=== PATIENT | female | born 1980 | race Caucasian/White ===

== ENCOUNTER 2017-02-18 17:05 | Inpatient (IN) ==
[2017-02-18] MEDS ORDERED: ALBUTEROL/IPRATROPIUM 3 ML NEB RESP TX STA (18:04)
[2017-02-18] MEDS ORDERED: cefTRIAXone 1,000 MG in SODIUM CHLORIDE 0.9% 100 ML IV STA (18:04)
[2017-02-18] MEDS ORDERED: ONDANSETRON 4 MG/2 ML VIAL IV STA ×2 (18:04→20:32)
[2017-02-18] MEDS ORDERED: SODIUM CHLORIDE 0.9% 1,000 ML IV STA (18:04)
[2017-02-18] MEDS ORDERED: methylPREDNISolone SOD SUC 125 MG/2 ML VIAL IV STA (18:04)
--- NOTE | 2017-02-18 18:18 | Emergency Department Note ---
Carmelita Dykes Mantricia, am scribing for, and in the presence of, Brando Mota MD 18:01. Svetlana Dykes Charles R, MD, personally performed the services described in this documentation, ascribed by Maritza Mae in my presence, and it is both accurate and complete 8 . Arrival - Arrival Chief Complaint: Non-Specific ED Nursing Triage Note: pt was outside and fell. pt was sitting outside and fell out of a chair Mode of Arrival: Stretcher Limitations: No Limitations Source: Guardian Time Seen by Provider: 02/18/17 17:42 - History of Present Illness HPI Narrative: Pt is a 36 y/o white female arriving to ED by EMS with c/o a fall that onset today. Guardian at [facility] states that pt was sitting outside on some cement blocks and they noticed that she was slumped over. When they looked again, pt was on the ground and had fallen. Pt states that she is sick to her stomach. She has down syndrome but reports no other medical Hx. No other complaints were reported to ED. Onset (ago): hour(s) Consistency: constant Severity: mild Allergies/Adverse Reactions: Allergies Allergy/AdvReac Type Severity Reaction Status Date / Time Iodinated Contrast Media - Allergy Unknown/Unable Verified 02/18/17 17:17 Oral and to obtain Home Medications: Home Medications Medication Instructions Recorded Confirmed Type Albuterol Neb [Proventil Neb] 2.5 mg RESP TX Q4H PRN 02/18/17 02/18/17 History Citalopram Hydrobromide 20 mg PO 0800 02/18/17 02/18/17 History [Citalopram HBr] Divalproex Sodium [Divalproex 750 mg PO 0800 02/18/17 02/18/17 History Sodium ER] Furosemide Tab [Lasix Tab] 20 mg PO 0800 02/18/17 02/18/17 History Levothyroxine Tab [Synthroid Tab] 150 mcg PO DAILY@0700 02/18/17 02/18/17 History Potassium Chloride 20 meq PO 0800 02/18/17 02/18/17 History clonazePAM TAB [KlonoPIN] 0.5 mg PO BEDTIME 02/18/17 02/18/17 History Review of System - Review of System 12 point system: reviewed and no additional remarkable complaints except as stated - Review of System Constitutional: Present: other (fall). Absent: chills, diaphoresis Eyes: Absent: discharge, pain, redness Head/Ears/Nose/Throat: Absent: earache, epistaxis Respiratory: Absent: cough, respiratory distress, wheezing Cardiovascular: Absent: chest pain, palpitations Gastrointestinal: Present: nausea. Absent: vomiting Genitourinary female: Absent: abnormal menses, dysuria Musculoskeletal: Absent: arm pain, back pain, leg pain, neck pain Skin: Absent: rash, lesions Neurological: Absent: headache, weakness Psychiatric: Absent: anxiety, depression Medical,Surgical,& Family Hx - Medical History Psychological: History of: Anxiety Disorders Respiratory: History of: Respiratory Problems (resp failure) Other: History of: Miscellaneous Medical Problems (down syndraome) - Social History Smoking Status: Never smoker Frequency of Alcohol Use: None Type of Drug Use: None Exam Vital Signs: Vital Signs Temperature 97.0 F L 02/18/17 17:11 Pulse Rate 78 02/18/17 19:01 Respiratory Rate 15 02/18/17 18:32 Blood Pressure 102/66 02/18/17 19:01 O2 Sat by Pulse Oximetry 100 02/18/17 18:32 - General General appearance: alert, in no apparent distress - Head Head exam: Present: atraumatic, normocephalic, normal inspection - Eye Eye exam: Present: normal appearance, PERRL, EOMI - ENT ENT exam: Present: normal exam, normal oropharynx, mucous membranes moist, TM's normal bilaterally, normal external ear exam - Neck Neck exam: Present: normal inspection, full ROM, trachea midline. Absent: tenderness - Chest Chest inspection: Present: normal inspection, symmetric chest wall rise. Absent : tenderness - Respiratory Respiratory exam: Present: rhonchi (bilateral) - Cardiovascular Cardiovascular exam: Present: normal rhythm, tachycardia, murmur (3/6 systolic) - Abdominal Exam Abdominal exam: Present: soft, normal bowel sounds. Absent: distention, tenderness, guarding, rebound - Extremities Exam Extremities exam: Present: normal inspection, full ROM, normal capillary refill. Absent: tenderness, pedal edema - Back Exam Back exam: Present: normal inspection, full ROM. Absent: tenderness - Neurological Exam Neurological exam: Present: alert, oriented X3, CN II-XII intact, normal gait - Psychiatric Psychiatric exam: Present: normal affect, normal mood - Skin Skin exam: Present: warm, dry, intact, normal color Course - Consultations Consultation #1: Hospitalist will admit patient Time: 22:08 Results - Labs CBC & BMP: 02/18/17 18:30 02/18/17 18:30 Lab Results: I have reviewed the patients labs - Diagnostic Findings Procedure: CT Abdomen and Pelvis: report reviewed by me, image reviewed by me ( Negative), CT: image reviewed by me, report reviewed by me (CT head negative), X -ray: image reviewed by me, report reviewed by me (Pulmonary congestion) Critical Care Time Critical Care Time: Yes Total Critical Care Time: 60 Disposition Clinical Impression: Syncope and collapse, Down syndrome, Pericardial effusion, Exertional dyspnea, Hypotension, Transient hypoxia, Nausea & vomiting, CHF (congestive heart failure ) Case discussed with: patient Disposition: Still a Patient Condition: Guarded Time of Disposition: 22:08
--- NOTE | 2017-02-18 18:30 | XRay Report ---
XR chest 1V portable Indication: Shortness of breath Comparison: None available Findings: The heart and mediastinum are stable in size and configuration. The pulmonary vascularity is increased with bilateral increased interstitial lung density. No other lung infiltrates, effusions, pneumothorax or other abnormality is demonstrated. Impression: Findings suggest cardiac decompensation. PROCEDURE INTERPRETED AT [facility] DEPARTMENT OF RADIOLOGY Final Report Signed by: Dr. Rodney Ferro
[2017-02-18 18:31] LABS: ABG Base Excess 6.7 MMOL/L (-2.5-2.5); ABG HCO3 30.5 MMOL/L (20-26); ABG Oxygen Saturation 95.3 % (95-100); ABG PCO2 39.4 MM HG (35-48); ABG PH 7.496 (7.35-7.45); ABG PO2 70.5 MM HG (80-95); ABG TCO2 26.6 MMOL/L (23-27); Allen Test Positive
[2017-02-18] MEDS ORDERED: methylPREDNISolone SOD SUC 125 MG/2 ML VIAL ONE (18:38)
[2017-02-18] MEDS ORDERED: cefTRIAXone 1,000 MG VIAL ONE (18:38)
[2017-02-18] MEDS ORDERED: ONDANSETRON 4 MG/2 ML VIAL ONE ×2 (18:38→20:31)
--- NOTE | 2017-02-18 18:49 | EKG Report ---
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
[2017-02-18 18:51] LABS: Basophils % 0.5 % (0.0-0.8); Eosinophils % 0.5 % (0.00-10.9); Hematocrit 37.7 VOL% (35.7-47.0); Hemoglobin 12.8 GM/DL (12.0-16.0); Immature Granulocytes % 0.4 %; Immature Granulocytes Absolute 0.03 #; Lymphocytes # 2.1 10*3/uL (1.4-4.0); Lymphocytes % 26.9 % (21.3-54.2); Mean Corpuscular Hemoglobin 35 PG (27-34); Mean Corpuscular Volume 104.1 FL (87-102); Monocytes # 0.8 10*3/uL (0.11-0.8); Neutrophils # 4.7 10*3/uL (1.4-7.4); Neutrophils % 60.7 % (38.7-73.9); Platelet Count 177 T/CUMM (130-400); Red Blood Count 3.62 MC/CUMM (3.8-5.5); White Blood Count 7.7 T/CUMM (4-12)
[2017-02-18] MEDS ORDERED: FUROSEMIDE 20 MG/2 ML VIAL IV STA (18:58)
[2017-02-18] MEDS ORDERED: SODIUM CHLORIDE 0.9% 500 ML IV STA (18:58)
[2017-02-18 19:05] LABS: D-Dimer <= 0.5 MG/L FEU; INR 1.1; PT Patient Result 12.1 SECS
[2017-02-18 19:13] LABS: Alanine Aminotransferase 35 U/L (13-56); Albumin 3.4 G/DL (3.4-5.0); Alkaline Phosphatase 47 U/L (45-117); Aspartate Amino Transferase 39 U/L (0-37); Blood Urea Nitrogen 8 MG/DL (7-18); Calcium 8.5 MG/DL (8.5-10.1); Glucose 90 MG/DL (74-106); Magnesium 2.5 MG/DL (1.8-2.4); Osmolality,Calculated 278.3 MOS/KG (273-304); Potassium 3.8 MMOL/L (3.5-5.1); Sodium 141 MMOL/L (136-145); Total Protein 6.4 G/DL (6.4-8.3); Troponin I Only < 0.015 NG/ML (0.00-0.045)
[2017-02-18] MEDS ORDERED: FUROSEMIDE 20 MG/2 ML VIAL ONE (19:43)
--- NOTE | 2017-02-18 20:00 | CT Report ---
CT brain Indication: Syncope Comparison: None available Technique: Axial CT imaging of the brain is performed without contrast with 3 mm increments. Findings: No evidence of hemorrhage, mass mass effect midline shift or acute infarct seen. The brain parenchyma attenuation and differentiation appears within normal limits. The ventricles and cisterns are normal in caliber. No cranial or skull base abnormality is identified. Impression: No evidence of abnormality demonstrated. This CT exam was performed using one or more the following dose reduction techniques: Automated exposure control, adjustment of the MA and/or KV according to patient size, or use of iterative reconstruction technique. PROCEDURE INTERPRETED AT [facility] DEPARTMENT OF RADIOLOGY Final Report Signed by: Dr. Rodney Ferro
[2017-02-18] MEDS ORDERED: ALUM/MAG/SIMETH/LIDO VISC 1:1 30 ML BOTTLE PO ONE (20:31)
[2017-02-18] MEDS ORDERED: ALUM/MAG/SIMETH/LIDO VISC 1:1 30 ML BOTTLE PO STA (20:32)
[2017-02-18 20:35] LABS: Apearance,Urine CLEAR (Clear); Bilirubin,Urine Negative (Negative); Blood, Urine Negative (Negative); Glucose,Urine (UA) Negative (Negative); Ketones,Urine Negative (Negative); Mucus,Urine Occasional /LPF (Occasional); Nitrite,Urine Negative (Negative); Protein,Urine Negative; RBC,Urine 1 /HPF (0-4); Squamous Epithelial Cell,Urine Occasional /HPF (0-10); Urine Color Yellow (Yellow); Urine Specific Gravity 1.005 (1.001-1.035); Urine Urobilinogen < 2.0 EU/DL (0.2-1.0); WBC,Urine 1 /HPF (0-6)
--- NOTE | 2017-02-18 21:20 | CT Report ---
CT abdomen pelvis Indication: Abdominal pain, syncope Comparison: None available Technique: Axial CT imaging of the abdomen and pelvis is performed without contrast. Findings: Small pericardial effusion is present. Otherwise the and lung bases are within normal limits CT abdomen: The liver spleen pancreas and adrenal glands are normal in size and density. No evidence of focal lesion is demonstrated in these solid organs. Kidneys are normal in size and density. No evidence of hydronephrosis or nephrolithiasis is seen. The bowel caliber is normal and no wall thickening or adjacent inflammatory change is seen. No evidence of free fluid or free air is present. CT pelvis: The bowel and bladder appear within normal limits. The pelvic organs show no evidence of abnormality Impression: Small pericardial effusion. No other evidence of abnormality demonstrated. This CT exam was performed using one or more the following dose reduction techniques: Automated exposure control, adjustment of the MA and/or KV according to patient size, or use of iterative reconstruction technique. PROCEDURE INTERPRETED AT [facility] DEPARTMENT OF RADIOLOGY Final Report Signed by: Dr. Rodney Ferro
[2017-02-18] MEDS ORDERED: ALBUTEROL 2.5 MG/3 ML NEB RESP TX PRN (23:18)
--- NOTE | 2017-02-18 23:18 | Hospitalist History & Physical ---
Assessment and Plan (1) Syncope and collapse Status: Acute Assessment and plan: admit to telemetry carotid u/s in am echo in am get records from [place]/longterm D-dimer negative CT abdomen unremarkable. Current Visit: Yes (2) Down syndrome Status: Chronic Current Visit: Yes (3) Pericardial effusion Status: Acute Current Visit: Yes (4) CHF (congestive heart failure) Status: Acute Assessment and plan: Echo in am BNP normal D- dimer negative On lasix and kcl as outpt Current Visit: Yes History of Present Illness Chief complaint: Syncope, SOB History of present illness: Ms. Obrien is a 36 year old female arriving to ED by EMS with c/o a fall today. Guardian at [facility] states that pt was sitting outside on some cement blocks and they noticed that she was slumped over. When they looked again, pt was on the ground and had fallen. Pt states that she is sick to her stomach. She has Down's syndrome but reports no other medical Hx. No other complaints were reported to ED. She is morbidly obese and no-one is with her in the ER at the time of my evaluation. She answers "yes" to Shortness of breath and tells me that she fell today. The history is taken from the ER physician and records in the ED. I was called to admit the patient for workup of syncope. Her chest x-ray shows congestive heart failure however her BNP is not elevated. She has a listed allergy to contrast dye and her d-dimer is negative suggesting no pulmonary embolus. The patient is unable to provide any history given her mental status due to Down syndrome. Home Medications Medication Instructions Recorded Confirmed Type Albuterol Neb [Proventil Neb] 2.5 mg RESP TX Q4H PRN 02/18/17 02/18/17 History Citalopram Hydrobromide 20 mg PO 0800 02/18/17 02/18/17 History [Citalopram HBr] Divalproex Sodium [Divalproex 750 mg PO 0802/18/17 02/18/17 History Sodium ER] Furosemide Tab [Lasix Tab] 20 mg PO 0800 02/18/17 02/18/17 History Levothyroxine Tab [Synthroid Tab] 150 mcg PO DAILY@0700 02/18/17 02/18/17 History Potassium Chloride 20 meq PO 0800 02/18/17 02/18/17 History clonazePAM TAB [KlonoPIN] 0.5 mg PO BEDTIME 02/18/17 02/18/17 History Allergies Allergy/AdvReac Type Severity Reaction Status Date / Time Iodinated Contrast Media - Allergy Unknown/Unable Verified 02/18/17 17:17 Oral and to obtain Medical,Surgical,& Family Hx - Medical History Cardio: History of: CHF Psychological: History of: Anxiety Disorders Neurology: History of: Seizures Endocrine: History of: Thyroid Disorder Respiratory: History of: Respiratory Problems (resp failure) Other: History of: Miscellaneous Medical Problems (down syndraome) - Family History Family History: Reports;: Additional Family History (unobtainable due to patient mental ability- Down Syndrome) - Social History Smoking Status: Never smoker Frequency of Alcohol Use: None Type of Drug Use: None Marital Status: Single Lives With:: Slps Functional capacity: independent ambulation ROS unobtainable: due to mental status, other (patient with down syndrome) Exam - Constitutional Exam: Constitutional System: Mild distress. No tremulousness. Morbidly obese. Trisomy 21 features noted Head: Normocephalic, atraumatic. Ears, Nose and Throat System: No pain or tenderness. No epistaxis or discharge Eyes System: Pupils equal, round, and reactive. Extraocular muscles intact. Neck: Supple, without adenopathy, No jugular venous distention. No thyromegaly, neck mass, or prior surgery apparent. Respiratory System: Chest clear to auscultation. Cardiovascular System: Heart with regular rate and rhythm. No murmur. GI System: Abdomen soft, nontender. Normo active bowel sounds present. Musculoskeletal System: limbs with no pedal edema. Full distal pulses. Neurological System: No discernable sensory deficit. No aphasia Psychiatric System: Unable to assess secondary to Down syndrome Results - Labs CBC & BMP: 02/18/17 18:30 02/18/17 18:30 Lab Results: I have reviewed the past 24 hour labs - Diagnostic Findings Procedure: Chest x-ray: image reviewed by me, report reviewed by me, CT Abdomen and Pelvis: image reviewed by me, report reviewed by me, CT: image reviewed by me, report reviewed by me
[2017-02-18] MEDS ORDERED: ONDANSETRON 4 MG/2 ML VIAL IV PRN (23:19)
[2017-02-18] MEDS ORDERED: ACETAMINOPHEN 325 MG TABLET PO PRN (23:19)
[2017-02-19] MEDS: ENOXAPARIN 40 MG/0.4 ML SYRINGE SUBCUT SCH ×2 (00:33→20:03)
[2017-02-19] MEDS ORDERED: LEVOTHYROXINE 150 MCG TABLET PO SCH (07:00)
--- NOTE | 2017-02-19 07:19 | XRay Report ---
Exam: XR chest 1V portable Date: 02/19/2017 4:00 AM Indication: Shortness of breath Comparison: None Technical: 02/18/2017 Findings: Cardiomegaly present. Low volume effusions are present with mild interstitial edema slightly decreased when compared to previous exam. Oxygen tubing superimposes the chest. Mediastinum is unremarkable. Impression: Cardiomegaly with component of the pulmonary edema CHF however slightly improved when compared to previous exam. Tiny effusions persist PROCEDURE INTERPRETED AT [facility] DEPARTMENT OF RADIOLOGY Final Report Signed by: Dr. Jethro Douglas
[2017-02-19 07:25] LABS: Calcium 8.4 MG/DL (8.5-10.1); Magnesium 2.5 MG/DL (1.8-2.4); Osmolality,Calculated 279.3 MOS/KG (273-304); Potassium 3.7 MMOL/L (3.5-5.1); Risk Ratio 3.8; Thyroid Stimulating Hormone 70.5 uIU/ml (0.358-3.74); VLDL CHOLESTEROL 16.6 MG/DL
--- NOTE | 2017-02-19 07:47 | Ultrasound Report ---
Exam: US carotid duplex BI Date: 02/19/2017 4:00 AM Indication: Syncopal episode Findings: Grayscale color flow analysis and spectral analysis imaging was performed with image stored and captured. Right Flow velocities centimeters per second Common carotid artery: 49 Proximal ICA: 36 Distal ICA: 30 External carotid artery: 57 Vertebral artery: 31 ICA/CCA ratio: 0.7 Measurements in millimeters Distal ICA: 5. Left: Flow velocities centimeters per second Common carotid artery: 73 Proximal ICA: 32 Distal ICA: 32 External carotid artery: 68 Vertebral artery: 55 ICA/CCA ratio: 0.4 Measurements in millimeters Distal ICA: 4.9 grayscale color flow analysis reveals normal color flow. Mild intimal hyperplasia present. Normal triphasic waveform present. Impression: 1. 0-15% stenosis bilaterally. Today studies were performed utilizing indirect NASCET criteria The ultrasound images were stored and captured PROCEDURE INTERPRETED AT [facility] DEPARTMENT OF RADIOLOGY Final Report Signed by: Dr. Jethro Douglas
[2017-02-19] MEDS: CITALOPRAM 20 MG TABLET PO SCH (08:37)
[2017-02-19] MEDS: DIVALPROEX ER 250 MG TABLET PO SCH (08:37)
[2017-02-19] MEDS: FUROSEMIDE 20 MG TABLET PO SCH (08:37)
[2017-02-19] MEDS: POTASSIUM CHLORIDE 20 MEQ TABLET PO SCH (08:37)
[2017-02-19] MEDS: PANTOPRAZOLE 40 MG TABLET PO SCH (08:37)
--- NOTE | 2017-02-19 13:43 | Hospitalist Progress Note ---
Assessment and Plan - Time spent with patient Time spent with patient: Greater than 30 minutes (1) Hypothyroidism Status: Acute Assessment and plan: Start IV synthroid. Anticipate D/C with increased oral dose. Current Visit: Yes (2) CHF (congestive heart failure) Status: Acute Assessment and plan: Awaiting echo. Continue medications. Current Visit: Yes (3) Syncope and collapse Status: Acute Assessment and plan: Syncope workup underway. Current Visit: Yes (4) Down syndrome Status: Chronic Current Visit: Yes Hospitalist: Subjective Interval history: Unable to provide any history, no overnight events. Exam - Constitutional Vitals: Period Temp Pulse Resp BP Sys/Ortiz Pulse Ox Last 24 Hr 97.4 F-97.7 F 68-78 16-20 91-104/49-55 92-96 General appearance: no acute distress - Head Head exam: Present: normocephalic, atraumatic - Eye Eye exam: Present: EOMI Pupils: Present: VICK - ENT ENT exam: Present: normal exam - Neck Neck exam: Present: normal inspection - Respiratory Respiratory exam: Present: clear to auscultation bilaterally. Absent: rhonchi, wheezes - Cardiovascular Cardiovascular exam: Present: regular rate and rhythm. Absent: gallop, rubs, systolic murmur - GI/Abdominal GI/Abdominal exam: Present: normal bowel sounds, soft. Absent: distended, firm , guarding, tenderness, rebound - Extremities Exam Extremities exam: Present: normal inspection. Absent: calf tenderness, edema Results - Labs CBC & BMP: 02/18/17 18:30 02/19/17 06:13 Lab Results: I have reviewed the past 24 hour labs
--- NOTE | 2017-02-19 17:08 | ECHO Report ---
Malka Obrien Exam Date: 02/19/2017 08:16 Referring Physician: Technologist: Jessica Dodson Age: 36 Ht (in): 62 Wt (lb): 160 Gender: F Exam [facility]: [facility] Echo Indications: syncope and collapse, down syndrome, pericardial effusion, excertional dysnea, hypotension, CHF, nausea / vomiting BP: 99 / 55 HR: 78 Rhythm: Sinus Technical Quality: Technically difficult study IMPRESSIONS Technically difficult study .EF 50-55 %. Grade I/IV diastolic dysfunction (abnormal relaxation filling pattern), normal to mildly elevated filling pressures. Normal right ventricular size. Normal right atrial size. Normal left atrial size. Mildly thickened mitral valve. Trace mitral valve regurgitation. Thickened aortic valve. No aortic valve regurgitation. Morphologically normal tricuspid valve. Trace pulmonary valve regurgitation. Trivial pericardial effusion. Normal size aortic root and proximal ascending aorta. MEASUREMENTS (Male / Female) Normal Values 2D ECHO LV Diastolic Diameter PLAX 3.8 cm 4.2 - 5.9 / 3.9 - 5.3 cm LV Systolic Diameter PLAX 2.7 cm LV Fractional Shortening PLAX 28.6 % IVS Diastolic Thickness 1.4 cm 0.6 - 1.0 / 0.6 - 0.9 cm LVPW Diastolic Thickness 1.3 cm 0.6 - 1.0 / 0.6 - 0.9 cm RV Internal Dim ED PLAX 1.7 cm Aortic Root Diameter 2.0 cm LA Systolic Diameter LX 2.6 cm 3.0 - 4.0 / 2.7 - 3.8 cm FINDINGS Left Ventricle EF 50-55 %.Grade I/IV diastolic dysfunction (abnormal relaxation filling pattern), normal to mildly elevated filling pressures. Right Ventricle Normal right ventricular size. Right Atrium Normal right atrial size. Left Atrium Normal left atrial size. Mitral Valve Mildly thickened mitral valve. Trace mitral valve regurgitation. Aortic Valve Thickened aortic valve. No aortic valve regurgitation. Tricuspid Valve Morphologically normal tricuspid valve. Pulmonic Valve Morphologically normal pulmonic valve. Trace pulmonary valve regurgitation. Pericardium Trivial pericardial effusion. Aorta Normal size aortic root and proximal ascending aorta. Omero Nava (Electronically Signed) Final Date: 19 Feb 2017 17:07
[2017-02-20] MEDS ORDERED: LEVOTHYROXINE 100 MCG VIAL IV SCH (07:00)
[2017-02-20] MEDS ORDERED: LEVOTHYROXINE 150 MCG TABLET PO SCH (07:00)
[2017-02-20] MEDS: DIVALPROEX ER 250 MG TABLET PO SCH (09:00)
[2017-02-20] MEDS: FUROSEMIDE 20 MG TABLET PO SCH (09:01)
[2017-02-20] MEDS: CITALOPRAM 20 MG TABLET PO SCH (09:01)
[2017-02-20] MEDS: POTASSIUM CHLORIDE 20 MEQ TABLET PO SCH (09:01)
[2017-02-20] MEDS: PANTOPRAZOLE 40 MG TABLET PO SCH (09:01)
[2017-02-20 09:14] VITALS: BP 83/54
--- NOTE | 2017-02-20 12:58 | Discharge Summary ---
Hospital Course - Hospital Course Hospital Course: Ms. Obrien is a 36-year-old female with Down syndrome who presented with a syncopal event. While in the ED the patient had examination of her abdomen pelvis with CT which revealed no abnormality. Patient had a syncopal workup to include a carotid ultrasound, echocardiogram. Carotid ultrasound was unremarkable. The echocardiogram revealed an ejection fraction of 50-55% with grade 1 out of 4 diastolic dysfunction. TSH levels returned 70 and 169 respectively. Free T4 was 0.32. Patient has severe hypothyroidism and I attempted to administer IV Synthroid however the patient was difficult and remove the IV line. At this time the patient met maximum benefit of hospitalization and will be discharged with 300 mcg of Synthroid which is double the dose she presented with. Instructions are to administer the Synthroid alone, early in the morning several hours prior to eating and with water only. By discharge the patient had met maximum benefit of hospitalization. - Time spent with patient Time with patient DS: Greater than 30 minutes Diagnosis - Discharge Diagnosis (1) Hypothyroidism Status: Acute (2) CHF (congestive heart failure) Status: Acute (3) Syncope and collapse Status: Acute (4) Down syndrome Status: Chronic Discharge Plan - Discharge Data Disposition: Disch To Home/Self Care Condition at Discharge: Stable Discharge Diet: advance to your usual diet Activity: resume usual activities as tolerated - Discharge Medications New Levothyroxine Tab [Synthroid Tab] 300 mcg PO DAILY@0700 tablet Continue Albuterol Neb [Proventil Neb] 2.5 mg RESP TX Q4H PRN PRN Reason: Shortness Of Breath/Wheezing Potassium Chloride 20 meq PO 0800 Furosemide Tab [Lasix Tab] 20 mg PO 0800 Divalproex Sodium [Divalproex Sodium ER] 750 mg PO 0800 Citalopram Hydrobromide [Citalopram HBr] 20 mg PO 0800 clonazePAM TAB [KlonoPIN] 0.5 mg PO BEDTIME Discontinued Levothyroxine Tab [Synthroid Tab] 150 mcg PO DAILY@0700 - Follow Up or Referral - Forms/Instructions Exam - Constitutional Vitals: Period Temp Pulse Resp BP Sys/Ortiz Pulse Ox Last 24 Hr 96.6 F-98.2 F 64-83 18-20 83-116/52-74 93-98 General appearance: normal weight, no acute distress - Head Head exam: Present: normal inspection, normocephalic, atraumatic - Eye Eye exam: Present: EOMI Pupils: Present: VICK - ENT ENT exam: Present: normal exam - Neck Neck exam: Present: normal inspection - Respiratory Respiratory exam: Present: clear to auscultation bilaterally - Cardiovascular Cardiovascular exam: Present: regular rate and rhythm - GI/Abdominal GI/Abdominal exam: Present: normal bowel sounds - Extremities Exam Extremities exam: Present: normal inspection Discharge Results Procedures and tests throughout hospitalization: Pending Orders 02/19/17 06:07 Free T3 (Triiodothyronine), S Stat Labs on day of discharge: Labs from last 24 hours 02/20/17 02/19/17 03:52 06:07 Free T4 0.32 L TSH 3rd Generation 169.000 H Preliminary micro results at discharge 02/19/17 06:13 Blood Culture - Preliminary Blood No growth at 1 day 02/19/17 06:13 Blood Culture - Preliminary Blood No growth at 1 day DS: Provider Date of admission: 02/18/17 22:19 Primary care physician: . No PCP Attending physician on admission: Clark Felder MD Discharging clinician: Noris Ferrer MD Expected date of discharge: 02/20/17
--- NOTE | 2017-02-24 12:47 | Physician Query Form ---
CLICK EDIT DOCUMENT TO SELECT QUERY ANSWER --> OK --> SIGN Celina Cunha RN Clinical Clerical Support Specialist W) [phone] (f) [phone] [email or web address] PROVIDERS: Make your selection(s) from the choices in EACH section by typing an "x" and enter comments in the comment section. Please use your independent medical judgment in providing your response. This request does not imply that any particular answer is desired or expected. CLINICAL INDICATORS: (Providers should not edit this section) Based on documentation of "acute CHF", BNP=30, Echo showed EF of 50-55% with Grade I/IV diastolic dysfunction. Pt. treated with IV Lasix. Please provide further specificity regarding CHF. TYPE: ( ) Systolic (HFrEF - heart failure with reduced systolic function/EF) ( x) Diastolic (HFpEF - heart failure with preserved systolic function/EF) ( ) Combined Systolic/Diastolic ( ) Other, please specify: ( ) Clinically unable to determine ( ) The patient does NOT have CHF COMMENTS: PLEASE ALSO DOCUMENT RESPONSE IN PROGRESS NOTES AND/OR DISCHARGE SUMMARY Use of terms such as suspected, likely, or probable (associated with a specific diagnosis that is being evaluated, monitored, or treated as if it exists) are acceptable and can be restated in the discharge summary if not ruled out. MTDD
== END 2017-02-20 15:00 | DRG 292 ==
LOC: N.ED 17:05 → N.EDINP 22:19 → SUATTDRO 22:19 → N.2E 23:08
PROVIDERS: ADMIT Family Medicine; ATTEND Internal Medicine